=== PATIENT | female | born 1950 | race Caucasian/White ===

== ENCOUNTER 2019-03-04 08:30 | Day surgery (SDC) | payer MEDICARE, SELFPAY ==
[2019-02-25 14:55] VITALS: BMI 38.1
[2019-03-04] VITALS (15 sets, daily range): BP systolic 113–158; BP diastolic 61–89; PULSE 60–87; RESP 8–18; TEMP 36.3–36.9; O2SAT 93–100; BMI 37.6
--- NOTE | 2019-03-04 | DI.RAD.S_ITS ---
PROCEDURE: XR CERVICAL SPINE 2V OR 3V INDICATIONS: C5-6 MOBI C DISC REPLACEMENT TECHNIQUE: 2 view(s) of the cervical spine were acquired. COMPARISON: [facility], , XR CERVICAL SPINE WITH FLEXION EXTENSION, 11/28/2018, 9:06. FINDINGS: C5-6 prosthetic disc noted. There is expected intraoperative alignment Dictated by: Delon Will M.D. on 03/04/2019 at 14:26 Approved by: Delon Will M.D. on 03/04/2019 at 14:28
[2019-03-04] MEDS: LACTATED RINGERS 1,000 ML 42 ML IV (09:15)
--- NOTE | 2019-03-04 10:07 | PM.PREOP ---
Pre-operative Note Interval Note History & Physical reviewed/Exam performed by Physician: Yes Changes to H&P: No
[2019-03-04] MEDS: CEFAZOLIN 2 GM/100 ML FROZ.PIGGY IV (10:50)
--- NOTE | 2019-03-04 11:03 | SUR.OPER ---
Supine, head on gel donut. Arms padded with gel pads, tucked at sides, towel roll under shoulders. Safety belt at thigh. Legs uncrossed, tape over blanket over lower legs.
[2019-03-04] MEDS: SODIUM CHLORIDE 0.9% 1,000 ML, GENTAMICIN 80 MG IRR (11:14)
[2019-03-04] MEDS: ACETAMINOPHEN IV 1,000 MG/100 ML VIAL 400 MG IV (11:25)
[2019-03-04] MEDS: THROMBIN (RECOMBINANT) 5,000 UNIT VIAL 5000 UNIT TOP (11:27)
--- NOTE | 2019-03-04 12:20 | PM.OP.1 ---
Operative Date/Time/Diagnoses Date of procedure: 03/04/19 Time of procedure: 12:20 Pre-op diagnosis: Cervical stenosis with radiculopathy Post-op diagnosis: same Procedure & Clinicians Procedure: C5-6 anterior diskectomy and artificial disc replacement Use of microscope Same procedure as scheduled: Yes Indications: [age] year old female with intractable pain from cervical disc herniation and stenosis. They had failed conservative management and requested operative intervention. Risks and benefits of surgery were discussed and appropriate consents were obtained. Surgeon: Salvatore Sheets Dish Cloth Inspector: Smitha Bernal Anesthesia Type: General Operative Notes Findings: None Closure Type: primary Specimen(s): none sent Prosthetic devices, grafts, tissues, transplants, or devices: Margaret Mobi-C Estimated Blood Loss (mL): 15 Procedure in detail: Patient was brought to the operating room and intubated on the table. A time-out was performed. Preoperative antibiotics were given. The neck was prepped and draped in the standard sterile fashion. Using her previous incision, we made a 3 cm oblique incision on the left side. We used Bovie to go through the platysma and then did a standard anterolateral blunt dissection. She had a fair amount of scarring and several bleeding veins that we had to tie off. We then came down to the precervical fascia. Fascia was nicked and elevated up. A marker was placed and x-ray was taken for localization. We then subperiosteally elevated up the longus colli muscles. Self-retaining retractors were placed. [place] pins were placed under x-ray guidance to be parallel to the endplates. We then brought in the microscope. A scalpel used to perform an annulotomy. We then used a combination of pituitaries and curettes and Kerrison to perform a complete anterior diskectomy at C5-6. We took down the PLL and used Kerrison to remove any posterior disc material and osteophytes. At the end we could from the nerve hook cephalad caudally and out the foramen and everything was opened. We distracted open with the parallel career technical counselor. We then used the horseshoes for sizing. We then used the trials. We then inserted a 5 x 15 x 15 mm size Mobi-C artificial disc replacement under fluoroscopic guidance for positioning. The traction was released and x-ray was checked again. The self-retaining retractors and [place] pins were removed and final x-rays taken. The wound was irrigated. There was no bleeding. The carotid was beating nicely. The platysma was closed. The superficial was closed. The skin was closed. A sterile dressing was placed. They were then extubated and brought to recovery room with no complications. Complications: none Condition: stable Disposition: PACU Plan for aftercare: Overnight admission due to her cardiac history. Plan is for checking troponins overnight as well as EKG. If all normal able to discharge home tomorrow.
--- NOTE | 2019-03-04 12:23 | P.OP_ITS ---
Operative Date/Time/Diagnoses Date of procedure: 03/04/19 Time of procedure: 12:20 Pre-op diagnosis: Cervical stenosis with radiculopathy Post-op diagnosis: same Procedure & Clinicians Procedure: C5-6 anterior diskectomy and artificial disc replacement Use of microscope Same procedure as scheduled: Yes Indications: [age] year old female with intractable pain from cervical disc herniation and stenosis. They had failed conservative management and requested operative intervention. Risks and benefits of surgery were discussed and appropriate consents were obtained. Surgeon: Salvatore Sheets Agronomy Supervisor: Smitha Bernal Anesthesia Type: General Operative Notes Findings: None Closure Type: primary Specimen(s): none sent Prosthetic devices, grafts, tissues, transplants, or devices: Margaret Mobi-C Estimated Blood Loss (mL): 15 Procedure in detail: Patient was brought to the operating room and intubated on the table. A time-out was performed. Preoperative antibiotics were given. The neck was prepped and draped in the standard sterile fashion. Using her previous incision, we made a 3 cm oblique incision on the left side. We used Bovie to go through the platysma and then did a standard anterolateral blunt dissection. She had a fair amount of scarring and several bleeding veins that we had to tie off. We then came down to the precervical fascia. Fascia was nicked and elevated up. A marker was placed and x-ray was taken for localization. We then subperiosteally elevated up the longus colli muscles. Self-retaining retractors were placed. [place] pins were placed under x-ray guidance to be parallel to the endplates. We then brought in the microscope. A scalpel used to perform an annulotomy. We then used a combination of pituitaries and curettes and Kerrison to perform a complete anterior diskectomy at C5-6. We took down the PLL and used Kerrison to remove any posterior disc material and osteophytes. At the end we could from the nerve hook cephalad caudally and out the foramen and everything was opened. We distracted open with the parallel waterfront director. We then used the horseshoes for sizing. We then used the trials. We then inserted a 5 x 15 x 15 mm size Mobi-C artificial disc replacement under fluoroscopic guidance for positioning. The traction was released and x-ray was checked again. The self-retaining retractors and [place] pins were removed and final x-rays taken. The wound was irrigated. There was no bleeding. The carotid was beating nicely. The platysma was closed. The superficial was closed. The skin was closed. A sterile dressing was placed. They were then extubated and brought to recovery room with no complications. Complications: none Condition: stable Disposition: PACU Plan for aftercare: Overnight admission due to her cardiac history. Plan is for checking troponins overnight as well as EKG. If all normal able to discharge home tomorrow.
[2019-03-04] MEDS: fentaNYL 100 MCG/2 ML INJ 50 MCG IV ×3 (12:33→12:53)
--- NOTE | 2019-03-04 12:48 | SUR.PHASEI ---
hand manager recovery strong and equal, sensation present. leg strenght weak and equal, sensation present.
[2019-03-04] MEDS: TRAMADOL 50 MG TABLET PO (13:42)
[2019-03-04] MEDS: LACTATED RINGERS 1,000 ML 125 ML IV ×2 (13:59→21:37)
[2019-03-04] MEDS: hydrOXYzine pamoate 25 MG CAPSULE PO ×2 (14:58→21:32)
[2019-03-04 15:36] LABS: Creatine Kinase 145 U/L (30-135)
[2019-03-04 15:48] LABS: Troponin I < 0.012 ng/mL (0.01-0.034)
[2019-03-04 15:52] LABS: CKMB % Relative Index 1.7 % (1.5-5.0); Creatine Kinase MB 2.47 ng/mL (<2.37)
--- NOTE | 2019-03-04 16:36 | PT.IIE ---
Current Diagnoses Spinal stenosis, cervical region (03/04/19) Radiculopathy, cervical region (03/04/19) Surgery Performed Operation Date: 03/04/19 10:15 Actual Procedures p C5-6 Anterior discectomy & Artificial disc replacement - Salvatore Sheets MD Surgical History (Last Updated 02/26/19 @ 08:24 by Mariia Mart, RN) History of lumbar fusion (Acute ~1984) History of total right hip arthroplasty (Acute ~2010) Hx of cholecystectomy (Acute) Hx of total vaginal hysterectomy (Acute ~1977) Hx of varicose vein ligation (Acute ~1979) S/P cervical spinal fusion (Acute ~1998) S/P patent foramen ovale closure (Acute ~2002) S/P right unicompartmental knee replacement (Acute 03/04/18) Medical History (Last Updated 02/26/19 @ 10:37 by Mariia Mart RN) Back fracture (Acute) Sue's cyst (Acute ~2007) Alvarez's disease (Acute ~05/2017) CAD (coronary artery disease) (Acute) CKD (chronic kidney disease) (Acute) CVA (cerebral vascular accident) (Acute ~05/2002) Chronic UTI (Acute) DVT (deep venous thrombosis) (Acute ~1970) Depressive disorder (Acute) Endometriosis (Acute) Erythema nodosum (Acute ~03/2006) Esophageal reflux (Acute) HLD (hyperlipidemia) (Acute) History of anesthesia complications (Acute) History of fall (Acute) Osteoarthritis (Acute) Pre-syncope (Acute) RBBB (Acute) Sinus bradycardia (Acute) Physical Therapy Inpatient Evaluation/Re-Eval M1 PT/OT-IP Prior Functional Status Start: 03/04/19 16:23 Freq: NEEDED Status: Active Protocol: Document 03/04/19 16:23 IJS (Rec: 03/04/19 16:36 IJS [id number]) Medical Review Prior Functional Status Medical History Reviewed Yes Diet/Fluid Consistency Regular Communication [place] Mobility and Gait Independent Activities of Daily Living and IADL's Independent Social History Household Members spouse Living Arrangements House Number of Stairs To Enter/Railing? one platform step without rail Home Environment High Toilet Home Equipment Front Wheel Walker Crutches Grab Bars Near Toilet Grab Bars In Shower Employment Status Unemployed Additional Social History Comment Tripped while camping and injured her neck M2 PT-IP Current Condition Start: 03/04/19 16:23 Freq: NEEDED Status: Active Protocol: Document 03/04/19 16:23 IJS (Rec: 03/04/19 16:36 IJS [id number]) Physical Therapy Current Condition Current Condition Evaluation Date 03/04/19 Treatment Diagnosis C5-6 Anterior disectomy and artificial disc replacement Onset Date 03/04/19 Precautions Cervical Spine Precautions Soft Collar for Comfort Soft Collar at all Times Rigid Collar No Heavy Lifting Log Roll Weight Bearing Status Weight Bearing Status Weight Bear as Tolerated M3 PT-IP Subjective Start: 03/04/19 16:23 Freq: NEEDED Status: Active Protocol: Document 03/04/19 16:23 IJS (Rec: 03/04/19 16:36 IJS [id number]) Subjective Physical Therapy Visit Type Type Initial Evaluation Visit Start Time 16:05 Visit Stop Time 16:23 Total Visit Minutes 18 Number of ANIME DESIGNER Visits 0 Physical Therapy Visit Comments Patient Comments Feeling good, ready to mobilize Patient Goals Return home tomorrow M4 PT-IP Mobility and Gait Start: 03/04/19 16:23 Freq: NEEDED Status: Active Protocol: Document 03/04/19 16:23 IJS (Rec: 03/04/19 16:36 IJS [id number]) PT-Bed Mobility Assessment Rolling Type of Rolling Log Rolling Level of Assist Standby Assistance Supine to Sit Supine to Sit Standby Assistance Sit to Supine Sit to Supine Standby Assistance Scooting Scooting to Edge of Bed Independent PT-Transfer Assessment Sit to and From Stand Sit to and from Stand Standby Assistance Equipment Transfer Assistive Device Gait Belt Front Wheeled Walker Orthotic/Prosthetic Devices or Brace: No Transfers Transfer Destination Chair Toilet Transfer Technique Stand Step Pivot Transfer Ability Level of Assist Standby Assistance Comments Mobility Comments Has had back and neck surgery before. Gait Assessment Gait Gait Assistance Required: Standby Assistance Distance (Feet) 200 Able to Maintain Weight Bearing Status Yes During Gait Assistive Devices Assistive Device Gait Belt Front Wheeled Walker Orthotic/Prosthetic Devices or Brace: No Gait Deviations General Gait Pattern Within Normal Limits Comments Gait Comments Normal gait pattern with FWW PT-Balance Assessment Sitting Balance and Reactions Static Sitting Balance Ability Normal Dynamic Sitting Balance Ability Normal Standing Balance and Reactions Static Standing Balance Ability Normal Dynamic Standing Balance Ability Good M5 PT-IP Objective Assessments Start: 03/04/19 16:23 Freq: NEEDED Status: Active Protocol: Document 03/04/19 16:23 IJS (Rec: 03/04/19 16:36 IJS [id number]) Orientation Orientation/Cognition Level of Alertness Alert Orientation Name Age Birthday Month Date Year Day of Week Place Situation Language Function Ability No Deficits Noted Memory Description No Deficits Noted Gross Range of Motion Upper Extremity ROM Assessment Within Functional Limits Lower Extremity ROM Assessment Within Functional Limits Strength Upper Extremity Strength Assessment Within Functional Limits Lower Extremity Strength Assessment Within Functional Limits Coordination Assessment Gross Coordination Gross Coordination WNL Sensation Assessment Sensation Gross Sensation WNL Comments Sensation Comments No longer has numbness in her 3-4 fingers on the right Muscle Tone Muscle Tone WNL Yes M6 PT-IP Treatment Start: 03/04/19 16:23 Freq: NEEDED Status: Active Protocol: Document 03/04/19 16:23 IJS (Rec: 03/04/19 16:36 IJS [id number]) Physical Therapy Treatment Education Education Provided Precautions Other Treatments Other Treatment Performed Provided with handouts for log roll and post op precautions M7 PT-IP Assessment and Plan Start: 03/04/19 16:23 Freq: NEEDED Status: Active Protocol: Document 03/04/19 16:23 IJS (Rec: 03/04/19 16:36 IJS [id number]) PT Summary Assessment and Plan Potential Rehabilitation Potential Good Status of Condition at Evaluation Stable Summary Impairments Activity Tolerance Assessment Summary Day of surgery, no complaints of pain at this time. Did well with mobility, no c/o dizziness Goals Bed Mobility Goal Independent Transfer Goal Independent Gait Goal Independent Gait Distance 250' Other Goals Safe to ascend one step platform Frequency of Treatment Frequency Of Treatment Once a Day Treatment Plan Physical Therapy Treatment Plan Transfer Training Gait Training Discharge Planning Other Recommendations and Next Treatment Will need to complete step Focus training Recommendations To Nursing Amount of Assist Needed Standby Assistance 1 Person Assist Discharge Recommendations PT Discharge Recommendations Home Other Discharge Recommendations Has supportive at home Equipment Needed for Home Before Has all equipment Discharge
[2019-03-04] MEDS: diazePAM 5 MG TABLET PO ×2 (17:00→22:57)
[2019-03-04] MEDS: TRAMADOL 50 MG TABLET 100 MG PO ×2 (17:25→22:57)
--- NOTE | 2019-03-04 19:17 | PC.NURSE ---
Addendum entered by Aileen Tabares R.N. 03/04/19 20:24: Mostly dozing. Pt assisted to BR, voided large amt of urine missing hat. Back to bed. Denies dizziness or nausea with movement. Reports pain so much better and denies need for pain medication at this time. Ice pack applied to right shoulder. Neck drsgs remains CDI, patient wearing cervical collar for support. Fall precautions in place, instructed to call staff for assisstance. Original Note: Evening note: At first assessment, Zoey reported pain 8/10 to bilateral anterior shoulder region and less pain to surgical incision site at left neck. Grimacing and winced a couple times. Valium 5 mg given, I then notified Dr Sheets that patient's pain not controlled with Tramadol 50 mg and Vistaril 25 mg. He gave new orders to give 50-100 mg Tramadol and if that doesn't work [place]. Pt hesitant to try [place] as she reports previous loopy after taking oxycodone, describing as hallucinating and seeing people in room that were not there. Medicated with 2nd tab Tramadol. After an hour she reports good pain relief, rating pain 2 or 3 to shoulders, able to sleep intermittently. Able to take bites of meal, denies nausea or difficulty swallowing, saying it's sore but I don't have problems swallowing. At 1600 ambulated with PT to BR, voided large amt, then ambulated back to bed, 4ww, gait belt & one person assist used for safe transfer. Bed alarm active, patient aware to have staff present before she gets out of bed. Fall precautions in place. Spouse visiting at bedside.
[2019-03-04] MEDS: DOCUSATE 100 MG CAPSULE PO (21:33)
[2019-03-04] MEDS: SENNOSIDES 8.6 MG TABLET 17.2 MG PO (21:33)
[2019-03-05] MEDS: LACTATED RINGERS 1,000 ML 125 ML IV (05:13)
[2019-03-05 05:45] VITALS: BP 100/53; PULSE 56; RESP 16; TEMP 36.9; O2SAT 96
[2019-03-05 08:00] VITALS: BP 119/78; PULSE 57; RESP 16; TEMP 36.2; O2SAT 97
--- NOTE | 2019-03-05 08:15 | PM.PNPO.1 ---
Subjective Date Patient Seen: 03/05/19 Time Patient Seen: 08:16 Interval history: She feels much better today. Only pain is still in the right shoulder but better than it had been. Arms feel great. Exam Vital Signs (past 8 hours): - 03/05/19 05:45 Temperature 98.4 F Pulse Rate 56 L Respiratory Rate 16 Blood Pressure 100/53 L Pulse Oximetry 96 Oxygen Delivery Method Room Air Oxygen Flow Rate 2 Const Orientation: alert and oriented x3 Back/Spine/Pelvis Other: CDI. 5/5 motor both upper extremities. Objective ECG Impression: Unchanged right bundle-branch block. Left axis deviation. No ST changes. Labs Labs: Laboratory Results - last 24 hr 03/04/19 15:00 Total Creatine Kinase 145 H CK-MB (CK-2) 2.47 H CK-MB (CK-2) Rel Index 1.7 Troponin I < 0.012 Assessment & Plan Post-op Postoperative Procedures Operation Date: 03/04/19 10:15 Actual Procedures Side Surgeon p C5-6 Anterior discectomy & Artificial disc replacement Salvatore Sheets MD She is doing better today. EKG does not show any acute cardiac event. Cardiac enzymes yesterday look good and we are repeating them again this morning. If they are good she can go home and follow up with her primary care physician as an outpatient. Quality VTE Deep Vein Thrombosis/Pulmonary Embolism Present on Admission: No
[2019-03-05 08:45] VITALS: O2SAT 96
[2019-03-05 08:59] LABS: Creatine Kinase 196 U/L (30-135)
[2019-03-05 09:13] LABS: Troponin I < 0.012 ng/mL (0.01-0.034)
[2019-03-05 09:14] LABS: CKMB % Relative Index 1.8 % (1.5-5.0); Creatine Kinase MB 3.46 ng/mL (<2.37)
[2019-03-05] MEDS: DOCUSATE 100 MG CAPSULE PO (09:21)
[2019-03-05] MEDS: TRAMADOL 50 MG TABLET 100 MG PO (09:22)
[2019-03-05] MEDS: MULTIVIT,CALC,MINS/IRON/FOLIC 1 TABLET 1 TAB PO (09:25)
[2019-03-05] MEDS: CALCIUM CARBONATE 600 MG TABLET PO (09:25)
[2019-03-05] MEDS: CYANOCOBALAMIN (VITAMIN B-12) 500 MCG TABLET 2500 MCG PO (09:26)
[2019-03-05] MEDS: CHOLECALCIFEROL (VITAMIN D3) 400 UNIT TABLET PO (09:26)
--- NOTE | 2019-03-05 09:49 | PC.NURSE ---
Addendum entered by Pamela Razo R.N. 03/05/19 13:03: pt left unit at 1303 in no distress via wheelchair with PSYCH THERAPIST, pt's present to drive pt home to [place]. Addendum entered by Pamela Razo R.N. 03/05/19 12:56: Prescriptions for Valium prn and Tramadool prn faxed to [facility] pharmacy in [place] per pt request. prescriptions then given back to pt. [facility] has all belongings. Discharge summary reviewed with pt and her . No voiced concerns. [facility] has follow up appointment already set with Dr. Sheets and aware to call PCP [facility]IQUE for Cardiac follow up. Addendum entered by Pamela Razo R.N. 03/05/19 11:05: Pt prefers to have Tramadol prn for pain management than [place]. [facility] aware and will write new prescription. Addendum entered by Pamela Razo R.N. 03/05/19 10:38: Rec'd call back from Dr. Sheets around 1035, Made aware of CK/Trop lab results. Order to discharge home with post op follow up and Follow up with PCP tomorrow or MONIQUE regarding cardiac follow through. Original Note: Day Shift- Left message on Dr. Sheets's cell at 0949 to be made aware of Pt's CK/Trop values have resulted from this AM lab draw. Per Physician request. Pt rates 3/10 aching to right shoulder. PRN Tramadol given at 0922. CMS+. Pt has chronic edema to right hand. Denies numbness/tingling. Anterior neck dressing of gauze and tegaderm CDI. Soft collar in place. Pt ambulating well with SBA with . Ambulated in halls for approx 1 lap around unit. Tolerated well.
--- NOTE | 2019-03-05 10:17 | PT.IPTN ---
Current Diagnoses Spinal stenosis, cervical region (03/04/19) Radiculopathy, cervical region (03/04/19) Surgery Performed Operation Date: 03/04/19 10:15 Actual Procedures p C5-6 Anterior discectomy & Artificial disc replacement - Salvatore Sheets MD Physical Therapy Treatment Note M2 PT-IP Current Condition Start: 03/04/19 16:23 Freq: NEEDED Status: Active Protocol: Document 03/04/19 16:23 IJS (Rec: 03/04/19 16:36 IJS [id number]) Physical Therapy Current Condition Current Condition Evaluation Date 03/04/19 Treatment Diagnosis C5-6 Anterior disectomy and artificial disc replacement Onset Date 03/04/19 Precautions Cervical Spine Precautions Soft Collar for Comfort Soft Collar at all Times Rigid Collar No Heavy Lifting Log Roll Weight Bearing Status Weight Bearing Status Weight Bear as Tolerated M3 PT-IP Subjective Start: 03/04/19 16:23 Freq: NEEDED Status: Active Protocol: Document 03/05/19 09:45 HH (Rec: 03/05/19 10:17 [id number]) Subjective Physical Therapy Visit Type Type Treatment Note Visit Start Time 09:45 Visit Stop Time 10:00 Total Visit Minutes 15 Notes Per RN, pt denies numbness but R should pain 3/10 this morning. Pt also mobilize with and nurse on AC floor this morning Number of ENGLISH TUTOR Visits 0 Physical Therapy Visit Comments Patient Comments Agreeable to mobilize with PT Patient Goals to return home today with her M4 PT-IP Mobility and Gait Start: 03/04/19 16:23 Freq: NEEDED Status: Active Protocol: Document 03/05/19 09:45 HH (Rec: 03/05/19 10:17 [id number]) PT-Bed Mobility Assessment Rolling Type of Rolling Log Rolling Roll to Left Level of Assist Independent Supine to Sit Supine to Sit Independent Bedrails Sit to Supine Sit to Supine Independent Bedrails Scooting Scooting to Edge of Bed Independent PT-Transfer Assessment Sit to and From Stand Sit to and from Stand Independent Use of Upper Extremities Equipment Transfer Assistive Device Gait Belt Front Wheeled Walker Orthotic/Prosthetic Devices or Brace: Yes Transfers Transfer Destination Bed Transfer Technique Stand Step Pivot Transfer Ability Level of Assist Standby Assistance Comments Mobility Comments Able to perform log roll safely. Gait Assessment Gait Gait Assistance Required: Standby Assistance Distance (Feet) 500 Able to Maintain Weight Bearing Status Yes During Gait Assistive Devices Assistive Device None Orthotic/Prosthetic Devices or Brace: No Gait Deviations General Gait Pattern Within Normal Limits Comments Gait Comments Normal gait pattern without AD PT-Balance Assessment Sitting Balance and Reactions Static Sitting Balance Ability Normal Dynamic Sitting Balance Ability Normal Standing Balance and Reactions Static Standing Balance Ability Normal Dynamic Standing Balance Ability Normal M5 PT-IP Objective Assessments Start: 03/04/19 16:23 Freq: NEEDED Status: Active Protocol: Document 03/04/19 16:23 IJS (Rec: 03/04/19 16:36 IJS [id number]) Orientation Orientation/Cognition Level of Alertness Alert Orientation Name Age Birthday Month Date Year Day of Week Place Situation Language Function Ability No Deficits Noted Memory Description No Deficits Noted Gross Range of Motion Upper Extremity ROM Assessment Within Functional Limits Lower Extremity ROM Assessment Within Functional Limits Strength Upper Extremity Strength Assessment Within Functional Limits Lower Extremity Strength Assessment Within Functional Limits Coordination Assessment Gross Coordination Gross Coordination WNL Sensation Assessment Sensation Gross Sensation WNL Comments Sensation Comments No longer has numbness in her 3-4 fingers on the right Muscle Tone Muscle Tone WNL Yes M6 PT-IP Treatment Start: 03/04/19 16:23 Freq: NEEDED Status: Active Protocol: Document 03/04/19 16:23 IJS (Rec: 03/04/19 16:36 IJS [id number]) Physical Therapy Treatment Education Education Provided Precautions Other Treatments Other Treatment Performed Provided with handouts for log roll and post op precautions M7 PT-IP Assessment and Plan Start: 03/04/19 16:23 Freq: NEEDED Status: Active Protocol: Document 03/05/19 09:45 HH (Rec: 03/05/19 10:17 HH [id number]) PT Summary Assessment and Plan Potential Rehabilitation Potential Excellent Status of Condition at Evaluation Stable Summary Impairments Pain Activity Tolerance Progress Towards Goals Safe For Discharge Goals Met Assessment Summary Pt performed very well with mobility primarily SBA/ independently. Stated her R shoulder pain with mobility. She was safe in transfers and gait without AD. Also has good understanding of her precautions and condition. She does not need AC therapy at this point and will cont mobility with nursing staff and . D/c from PT and safe to be d/c home today. Frequency of Treatment Frequency Of Treatment Discharge Recommendations To Nursing Amount of Assist Needed Standby Assistance Discharge Recommendations PT Discharge Recommendations Home Other Discharge Recommendations Has supportive at home Equipment Needed for Home Before Has all equipment Discharge
--- NOTE | 2019-03-05 11:50 | OT.IP.EVAL ---
Current Diagnoses Spinal stenosis, cervical region (03/04/19) Radiculopathy, cervical region (03/04/19) Surgery Performed Operation Date: 03/04/19 10:15 Actual Procedures p C5-6 Anterior discectomy & Artificial disc replacement - Salvatore Sheets MD Past Medical History (Last Updated 02/26/19 @ 10:37 by Mariia Mart RN) Back fracture (Acute) Sue's cyst (Acute ~2007) Alvarez's disease (Acute ~05/2017) CAD (coronary artery disease) (Acute) CKD (chronic kidney disease) (Acute) CVA (cerebral vascular accident) (Acute ~05/2002) Chronic UTI (Acute) DVT (deep venous thrombosis) (Acute ~1970) Depressive disorder (Acute) Endometriosis (Acute) Erythema nodosum (Acute ~03/2006) Esophageal reflux (Acute) HLD (hyperlipidemia) (Acute) History of anesthesia complications (Acute) History of fall (Acute) Osteoarthritis (Acute) Pre-syncope (Acute) RBBB (Acute) Sinus bradycardia (Acute) Surgical History (Last Updated 02/26/19 @ 08:24 by Mariia Mart RN) History of lumbar fusion (Acute ~1984) History of total right hip arthroplasty (Acute ~2010) Hx of cholecystectomy (Acute) Hx of total vaginal hysterectomy (Acute ~1977) Hx of varicose vein ligation (Acute ~1979) S/P cervical spinal fusion (Acute ~1998) S/P patent foramen ovale closure (Acute ~2002) S/P right unicompartmental knee replacement (Acute 03/04/18) Occupational Therapy Inpatient Evaluation/Re-Eval M1 PT/OT-IP Prior Functional Status Start: 03/04/19 16:23 Freq: NEEDED Status: Active Protocol: Document 03/05/19 11:50 NESTOR (Rec: 03/05/19 17:03 PJM [id number]) Medical Review Prior Functional Status Medical History Reviewed Yes Diet/Fluid Consistency Regular Communication WNL Mobility and Gait Independent without a device, denies falls Activities of Daily Living and IADL's Independent with all self care , and light IADLS, but limited recently by RUE pain; assists PRN Social History Household Members spouse Living Arrangements House Number of Floors (Floors) One Floor Number of Stairs To Enter/Railing? single platform step to enter Home Environment High Toilet Tub/Shower Home Equipment Grab Bars Near Toilet Grab Bars In Shower Employment Status Retired Additional Social History Comment pt plans to borrow shower seat from [employer] M2 OT-IP Current Condition Start: 03/05/19 16:52 Freq: Status: Active Protocol: Document 03/05/19 11:50 PJM (Rec: 03/05/19 17:03 PJM [id number]) Occupational Therapy Current Condition Current Condition Evaluation Date 03/05/19 Treatment Diagnosis decreased self care s/p c5-6 artificial disc placement Diagnosis Onset Date 03/04/19 Post Operative Precautions Cervical Spine Precautions Soft Collar for Comfort Rigid Collar No Heavy Lifting Log Roll M3 OT- IP Subjective and Pain Start: 03/05/19 16:52 Freq: Status: Active Protocol: Document 03/05/19 11:50 PJM (Rec: 03/05/19 17:03 PJM [email or web address]) OT- Subjective Occupational Therapy Visit Type Type Initial Evaluation Visit Start Time 11:14 Visit Stop Time 11:50 Total Visit Minutes 36 Notes Pt's here for education this session. Occupational Therapy Visit Comments Patient Comments All the pain in my R upper arm is gone and my R middle and ring finger aren't numb any more. Patient/Caregiver Goals to go home today OT Pain Assessment Pain When Pain Assessed After Treatment Pain Present Pain Present Pain Reported Location Right Shoulder Intensity 2 Scale Used Numeric (1 - 10) Description Aching Acute Tightness Pain Behaviors Guarding Management Techniques Apply Cold Distraction Re-positioning Timing of Activity with Medications M4 OT- IP ADL's Start: 03/05/19 16:52 Freq: Status: Active Protocol: Document 03/05/19 11:50 PJM (Rec: 03/05/19 17:03 PJM [id number]) OT [id number] General Evaluation Self-Feeding Ability Independent OT ADL-Grooming General Evaluation Grooming Ability Independent Comments OT Grooming Comments standing at sink after education re: body mechanics OT ADL-Oral Care Comments Oral Care Comments standing at sink after education re: body mechanics OT ADL-Dressing General Eval Upper Body Dressing Ability Independent Lower Body Dressing Ability Minimal Assistance Areas Needing Assistance Bra Button-Up Shirt/Blouse Underpants/Brief Pants/Shorts Shoes Comments OT Dressing Comments pt needs min assist with strap on sandals, will assist PRN and pt has slip on shoes at home; pt never wears socks OT ADL-Toileting General Evaluation Toileting Ability Independent OT ADL-Bathing Bathing Type Bathing Type Shower General Evaluation Bathing Ability Minimal Assistance Devices Bathing Equipment Hand Held Shower Sprayer Shower Chair without Arms Rinse Free Shampoo Cap Comments OT Bathing Comments provided education re: hair washing and methods to keep anterior neck incision dry; will assist PRN at home M5 OT- IP IADL's Start: 03/05/19 16:52 Freq: Status: Active Protocol: Document 03/05/19 11:50 PJM (Rec: 03/05/19 17:03 PJ [id number]) OT-Instrumental Activities of Daily Living Deficits IADL Deficits Identified Deficits Home Safety Awareness Awareness of Need for Assistance at Home Good Awareness Medication Management Medication Management No Deficits Identified Money Management Money Management No Deficits Identified Meal Preparation Meal Preparation Caregiver Provides Assist Meal Preparation Comments to assist until pt able General Hardware Salesperson General Hardware Salesperson Caregiver Provides Assist General Hardware Salesperson Comments to assist until pt able Driving Driving Caregiver Provides Assist Driving Comments to assist until pt able M6 OT- IP Functional Cognition Start: 03/05/19 16:52 Freq: Status: Active Protocol: Document 03/05/19 11:50 PJM (Rec: 03/05/19 17:03 PJ [id number]) Cognitive Factors Limiting Selfcare Function Cognitive Ability Level of Alertness Alert Attention Span Ability Capable of Focused Attention Capable of Sustained Attention Ability to Follow Commands Able to Follow One Step Commands Able to Follow Multi-Step Commands Memory Description No Deficits Noted Safety Awareness No Deficits Noted Problem Solving Ability No deficits Noted Executive Function Ability No Deficits Noted Cognitive Comments Cognitive Assessment Comments Pt verbalizes and demo's understanding of C spine precautions. OT- Vision and Hearing OT- Hearing Assessment OT- Hearing Assessment WFL OT- Vision Assessment Visual Acuity WFL Glasses All The Time M7 OT- IP Mobility and Balance Start: 03/05/19 16:52 Freq: Status: Active Protocol: Document 03/05/19 11:50 PJM (Rec: 03/05/19 17:03 PJ [id number]) OT- Bed Mobility Assessment Rolling Type of Rolling Roll to Left Level of Assistance Independent Supine to Sit Supine to Sit Assist Independent Sit to Supine Sit to Supine Assist Independent OT-Transfer Assessment Sit to and From Stand Sit to and from Stand Independent Transfers Transfer Ability Independent Technique Transfer Destination Car Chair Transfer Technique Stand Step Pivot Devices Transfer Assistive Devices None Comments Mobility Comments Pt ambulates without a device with no LOB noted OT- Gait Assessment Gait Gait Assistance Required: Independent Distance (Feet) 20 Assistive Devices Assistive Device None Comments Gait Ability Comments Pt ambulates without a device with no LOB noted OT- Balance Assessment Sitting Balance and Reactions Static Sitting Balance Ability Good Dynamic Sitting Balance Ability Good Standing Balance and Reactions Static Standing Balance Ability Good Dynamic Standing Balance Ability Good M8 OT- IP Objective Assessments Start: 03/05/19 16:52 Freq: Status: Active Protocol: Document 03/05/19 11:50 PJM (Rec: 03/05/19 17:03 PJM [id number]) OT Gross Range of Motion Upper Extremity Range of Motion Assessment Within Functional Limits ROM Impairments full AROM NT at shoulders due to recent C spine surgery OT Strength Upper Extremity Strength Assessment Within Functional Limits OT- Coordination Assessment Comments Coordination Comments BUW WFL for self care, buttons OT-Muscle Tone Assessment Muscle Tone WNL Yes OT Sensation Assessment Comments Summary Comments Pt reports numbness in R middle, ring fingers resolved since surgery Edema Edema Absent M9 OT- IP Assessment and Plan Start: 03/05/19 16:52 Freq: Status: Active Protocol: Document 03/05/19 11:50 PJM (Rec: 03/05/19 17:03 PJM [id number]) OT Summary Assessment and Plan Potential Rehabilitation Potential Good Summary Progress Towards Goals Safe For Discharge Assessment Summary Low complexity OT assessment and all OT education completed in one visit re: C spine precautions and adapted ADL techniques. Supportive will provide 24 hr assist to pt at home.No further OT services needed. Frequency of Treatment Frequency Of Treatment Discharge Discharge Recommendations OT Discharge Recommendations Home with Assistance Home Equipment Needs shower seat
[2019-03-05] MEDS: diazePAM 5 MG TABLET PO (12:32)
--- NOTE | 2019-03-05 12:33 | CM.DANOTE ---
Addendum entered by Polina Calles LPN 03/05/19 12:46: Checked in now with pt and her after conferring with LOU Santiago. Pt is up in chair, packed, soft collar in place. Says she feels very comfortable with the d/c today and she will make an appt with her PCP as soon as she gets home for the outpt followup in terms of her lab results. Dr. Sheets has cleared her for the d/c home. Original Note: Discharge Planning/Care Management DCP: assessment: case received, EMR reviewed and discussed case in Team Rounds. Pt is a 68 year old male female who admitted yesterday for a planned spinal/cercival surgery: Dr. Sheets: surgeon PCP: Dr. Ethan Naqvi PT and OT noted in rounds that pt had been cleared from therapy for a d/c to home with spouse support. RN coordinator Corry noted there were some possible cardiac concerns and that Dr. Sheets was being updated. CM Discharge Assessment Start: 03/05/19 12:32 Freq: Status: Active Protocol: Document 03/05/19 12:32 ITV (Rec: 03/05/19 12:33 ITV [id number]) Discharge Planning Assessment Advance Directives? No Advance Directives on File No History Provided By Patient Medical Record Prior Living Arrangements House Household Members spouse Is patient alert and oriented? Yes Review Status In Process Next Review Type Continued Stay Review Pre-Anesthesia Assessment Start: 02/25/19 14:55 Freq: Status: Complete Protocol: Document 02/25/19 14:55 CAB (Rec: 02/25/19 15:11 CAB [id number]) Pre-Anesthesia Assessment PAC Comment Delayed emergence from general anesthesia per PCP note, sensitive to propofol, stopped breathing w/ cholecystectomy Patient Information Reviewed Via Chart Review Diagnostic Results BMP/CMP CBC EKG Primary Care Provider Ethan Naqvi Medical Clearance Received Yes Seen Specialist in Last 12 Months Yes Specialist Seen Orthopedist Comment PCP pre-op/clearance scanned to record Primary Language Sinhala Sanitation Director Required No Height 168.91 cm Weight 108.862 kg Body Mass Index (BMI) 38.1 Barriers to Learning None Hx Anesthesia Reactions Yes: Delayed emergence from anesthesia per PCP note Comment Sensitive to propofol, stopped breathing w/ cholecystectomy Anesthesia Review Requested Yes: PAC Courtesy re: Medical history, anesthesia reactions Alcohol Intake Frequency Other: None Smoking Status Former smoker how long ago did patient quit smoking Quit 1973 Musculoskeletal Symptoms Limited Range of Motion Muscle Weakness Neck Pain History of Falling (Recent or History of Yes ) Patient is completely paralyzed or No completely immobile Mental Status Oriented to own ability Is patient on oxygen? No Does patient have GOSS/SOB No Hx Chest Pain No Hx SOB No Hx Syncope or Dizziness No
== END 2019-03-05 13:03 | disposition home or self-care (01) ==
LOC: OR 12:05 → AC 12:06
PROVIDERS: PCP Internal Medicine; Visit Provider Orthopaedic Surgery
PROC: (CPT 22856; principal; 2019-03-04 10:15)
DX: M48.02 Spinal stenosis, cervical region (principal); M50.122 Cervical disc disorder at C5-C6 level with radiculopathy
CPT/HCPCS: 22856; 36415; 72040; 76000; 82550; 82553; 84484; 93005; 94760; 97116; 97161; 97165; 97535; C1776; J0131; J0690; J1100; J2405; J2704; J3010